=== PATIENT | female | born 1985 | race Caucasian/White ===

== ENCOUNTER → 2017-11-22 12:51 | Outpatient (CLI) | payer BC, SELFPAY ==
--- NOTE | 2017-11-22 12:56 | US_ITS ---
US transvaginal HISTORY: Pelvic pain with heavy cycles ITS.REASON: Severe Pain ORDERING PHYSICIAN: Jed Graham MD PATIENT AGE: 32 years COMPARISON: None FINDINGS: UTERUS: The uterus measures 8 x 3.3 x 3.9 cm. Combined endometrial thickness is 5 mm. No uterine mass apparent. The left ovary is 3.8 x 1.9 cm containing small follicles. Right ovary is 3 x 2.37 m also contains small follicles. No dominant cyst. No cul-de-sac fluid apparent. IMPRESSION: Small bilateral ovarian follicles otherwise negative pelvic ultrasound.
== END ==
PROVIDERS: Family Provider Internal Medicine Adolescent Medicine; PCP Internal Medicine Adolescent Medicine; Visit Provider Nurse Practitioner Obstetrics & Gynecology
DX: N93.9 Abnormal uterine and vaginal bleeding, unspecified (principal); N94.4 Primary dysmenorrhea; R10.9 Unspecified abdominal pain
CPT/HCPCS: 76830

== ENCOUNTER 2018-02-11 07:06 | Observation (INO) ==
[2018-02-11 07:49] LABS: Basophils % 0.5 % (0.1-2.0); Eosinophils # 0.4 K/mm3 (0.0-0.4); Eosinophils % 9.8 % (0.1-12.0); Hematocrit 48.4 % (37.0-47.0); Hemoglobin 15.9 g/dL (12.2-16.2); Lymphocytes % 21.2 K/mm3 (10-50); Mean Corpuscular HGB Conc 32.9 g/dL (31.8-35.4); Mean Corpuscular Hemoglobin 28.2 pg (27.0-31.2); Mean Corpuscular Volume 85.8 fl (81-99); Mean Platelet Volume 8.9 fl (7.4-10.4); Monocytes # 0.4 K/mm3 (0.1-1.0); Monocytes % 8.5 % (1.7-9.3); Neutrophils # 2.7 K/mm3 (1.8-7.8); Platelet Count 199 K/mm3 (142-424); Red Blood Count 5.64 M/mm3 (4.20-5.40); Red Cell Distribution Width 12.6 % (11.5-17.5); White Blood Count 4.5 K/mm3 (4.8-10.8)
[2018-02-11 07:55] LABS: Anion Gap 13.3 mEq/L (5-15); Calcium 9.4 mg/dL (8.5-10.1); Potassium 3.3 mmoL/L (3.5-5.1)
--- NOTE | 2018-02-11 07:56 | Progress Note ---
[facility] Anesthesia Checklist - Patient Identification Patient Identification: Arm Band - Structural Data Admitted From: Home [facility] Operative Procedure(s) Verified: Yes Verified Documents: Surgical Consent, History and Physical - NPO Status Verified Time NPO: 00:00 - Additional verifications Anesthesia Reactions: No - Airway Assessment C-Spine Mobility Assessed: Yes (mp1) TMJ Mobility Assessed: Yes Dentition: Good Dentition - Neurological Assessment Level of Consciousness: Awake, Alert - Anesthesia Plan Anesthesia Risk discussed: Yes Anesthesia Plan: Verified ASA Class: II Anesthesia Type: General [facility] Anesthesia HX I have reviewed the patient's past medical history: Yes Medical History: Reports:: Asthma, Kidney Stones Denies:: Cancer, Diabetes Mellitus Type 1, Diabetes Mellitus Type 2, Internal Pacemaker, MRSA, Seizures Other Medical History: Reports: Arthritis. Denies: Blood Transfusion Reaction Laterality Cases: Bilateral: Tonsillectomy Other Surgeries: Yes: , Sinus Surgery, Other. No: Pacemaker Amputation: No Fractures: No *Family Hx:: Diabetes, Heart Attack, Coronary Artery Disease, Hypertension, Cancer, Hyperlipidemia, Asthma, Stroke
--- NOTE | 2018-02-11 10:45 | Operative Note ---
Date of procedure: 02/11/18 Pre-op Diagnosis:: Dysmenorrhea, dyspareunia, menorrhagia Post-op Diagnosis:: Dyspareunia, dysmenorrhea, menorrhagia, endometriosis Procedure performed:: Laparoscopically assisted vaginal hysterectomy and bilateral salpingectomy Surgeon:: Jed Graham MD Knot Tier(s):: Dr. Chang SAMPLER RADIOACTIVE WASTE:: Lloyd Herman Anesthesia: GETA Estimated blood loss (mL): 200 Clinical Note:: She is a 32-year-old 3 para 3 lady who complains of severe pain with her periods as well as dyspareunia and menorrhagia. She says she has been unable have intercourse as result of the severe pain. Ultrasound was essentially normal. After having discussed the risks and benefits she elected to have a laparoscopically assisted vaginal hysterotomy and bilateral salpingectomy. Operative findings:: She had a normal-appearing anteverted uterus. There was a 2 cm follicle on the right ovary. Tubes appeared normal. There was an area of powder burn endometriosis in the left side slightly above the left uterosacral ligament that was approximately 1 mm in size. The appendix is seen and appeared normal. The rest the pelvis appear normal. Operative note:: She was taken to the operating room where general anesthesia was found be adequate. She was prepped and draped in the normal sterile fashion in the semi- lithotomy position. A weighted speculum was placed in the vagina and the anterior lip of the cervix was grasped with a tenaculum. I inserted an Mela retractor into the cervical os. I then changed gloves and injected 10 mL of 0.5 percent ropivacaine around the umbilicus. I made a small incision within the umbilicus and inserted a Veress needle into the abdominal cavity. The abdominal cavity was then insufflated with carbon dioxide gas to a pressure of 20 millimeters of mercury. I then inserted an 11 mm trocar under direct vision. I injected through and through the pubic hairline, made a small incision here and inserted a 5 mm trocar under direct vision. I identified the inferior epigastric arteries on the LEFT side and went lateral to these and injected through and through. I made a small incision and inserted an 11 mm trocar under direct vision. This was similarly performed on the patient's RIGHT side. The LEFT round ligament was then grasped and cut with Harmonic scalpel. This was followed by the LEFT tube. I then cut through and cauterized the LEFT utero- ovarian ligament. I opened up the peritoneum anteriorly to the midline. I then took down the posterior aspect of the broad ligament to the level of the uterosacral ligament on the LEFT side. The uterine arteries on the LEFT side were then skeletonized. Hemoclips were placed across the uterine arteries and then the uterine arteries were cauterized with Harmonic scalpel adjacent to the cervix. We then further took down the bladder anteriorly. I grasped the RIGHT round ligament and cut through this with Harmonic scalpel. This was followed by the RIGHT tube. I then cauterized and cut the RIGHT utero- ovarian ligament with Harmonic scalpel. I then freed up the peritoneum anteriorly on the RIGHT side joining up with the midline. I then took down the posterior aspect of the broad ligament to the level of the uterosacral ligament. The uterine arteries on the RIGHT side were skeletonized. Hemoclips were applied to the uterine arteries. I then cauterized and cut the uterine arteries with Harmonic scalpel adjacent to the cervix. I freed up the bladder pillars on the RIGHT side and the LEFT side. I freed up the bladder anteriorly along the cervix. I After assuring hemostasis and rinsing the pelvis well we then turned our attention to the fallopian tubes. The RIGHT fallopian tube was grasped at its distal end and cut along the meso salpinx. The tube was removed through the 11 mm trocar site. This was similarly performed on the patient's LEFT side. After assuring hemostasis we then turned our attention to the vaginal portion the surgery. The patient was placed in the lithotomy position. A weighted spectrum was placed in vagina. The anterior and posterior lip of the cervix were grasped with Reardon tenacula. I injected 20 mL of 1 percent Xylocaine with epinephrine circumferentially about the cervix. I then circumscribed the cervix with knife. I then opened up into the posterior cul-de-sac with Pleitez scissors. The left uterosacral ligament was then clamped cut and suture ligated and tagged. This was followed by the cardinal ligament on the left side which was clamped cut and suture ligated. I then grasped the right uterosacral ligament which was clamped cut and suture ligated. This was also tagged. This is followed by the right cardinal ligament which was clamped cut and suture ligated. We then grasped the anterior vaginal mucosa and using both sharp and blunt dissection dissected into the anterior aspect of the peritoneum. A Yan retractor was then placed in this defect. I then clamped across the remaining tissue bilaterally and cut this away. The uterus was then retrieved through the vagina. These pedicles were then clamped cut and suture ligated. I then was able to grasp the corner of the vagina and using 0 Vicryl suture in a locked fashion I closed the vagina from anterior to posterior from LEFT to RIGHT. A Lazcano suture was then placed first using 0 Vicryl suture going through the posterior vagina and peritoneum. We then took a bite of the left uterosacral ligament and plicated across posterior peritoneum. This is followed by the right uterosacral ligament and then the suture was passed through the peritoneum and vagina. This was left to be tied at the end. I then placed a pursestring suture using 2-0 PDS starting anteriorly and picking up the peritoneum. The vaginal mucosa was then closed in running 0 Vicryl suture in a locked fashion from left to right and from anterior to posterior. The Lazcano suture was then tied. A Saldivar catheter was then placed in the bladder. Clear urine was seen to flow. We then turned our attention to the laparoscopic portion of the surgery once again. She was once of again placed in the semi-lithotomy position. I changed gloves. The abdominal cavity was insufflated with carbon oxide gas to a pressure of 20 mmHg. The pelvis was rinsed and once again hemostasis was assured. I let the gas into the abdomen to once again assuring hemostasis with decreased intra-abdominal pressure. Once again hemostasis was assured. The secondary trochars were then removed under direct vision. The sites were hemostatic. The gas was let out of the abdomen and the primary trocar and camera were removed together. No bowel seen to follow. The 11 mm trocar sites were closed deeply with 2-0 Vicryl suture followed by running subcuticular 4-0 Monocryl suture. The 5 mm trocar site was closed with subcuticular 4-0 Monocryl suture. Sterile dressings were applied. The patient tolerated the procedure well and was taken to the recovery room in excellent condition. All sponge instrument and needle counts were correct. Estimate a blood loss was approximately 200 mL. Condition: stable Disposition: PACU Specimens:: Uterus and fallopian tubes Complications:: None
--- NOTE | 2018-02-11 10:52 | Progress Note ---
[facility] Anesthesia Record Part I Intake, IV Amount: 1,000 Estimated blood loss (mL): 200 Urine output (mL): 50 Blood Products used (#): none Blood Pressure: 135/80 SaO2: 100 Pulse Rate: 68 Respiratory Rate: 18 Temperature: 97.4 F Patient is:: Awake, Stable Stable to PACU at:: 10:48
--- NOTE | 2018-02-11 10:53 | Progress Note ---
[facility] Anesthesia Record Part II Discharge Time: 11:18 Destination: Obstetric Gynecology Dept PACU nurse assessment reviewed?: Yes Patient Condition:: Good Anesthesia Complications:: None
--- NOTE | 2018-02-11 14:51 | Pharmacy Consult Notes ---
[facility] Pharmacy VTE Monitoring - Patient Demographics Admission date: 02/11/18 Report Date: 02/11/18 Time: 14:51 Allergies/Adverse Reactions: Patient Allergies codeine Allergy (Intermediate, Verified 02/11/18 07:22) Rash morphine Allergy (Intermediate, Verified 02/11/18 07:22) Rash penicillin V Allergy (Intermediate, Verified 02/11/18 07:22) Rash Penicillins Allergy (Intermediate, Verified 02/11/18 07:22) Rash Height: 1.68 m Weight: 63.503 kg - VTE Risk Labs: VTE Related Lab Results Hgb 15.9 g/dL (12.2-16.2) 02/11/18 07:41 Hct 48.4 % (37.0-47.0) H 02/11/18 07:41 Plt Count 199 K/mm3 (142-424) 02/11/18 07:41 BUN 7 mg/dL (7-18) 02/11/18 07:41 Creatinine 0.81 mg/dL (0.55-1.02) 02/11/18 07:41 Estimated Creat Clear 98 mL/min (0-300) 02/11/18 07:41 Clinical Trial Participant: No - Prophylaxis VTE Prophylaxis Ordered?: Yes Types of VTE Prophylaxis: IPCS Thigh High (POSTOP) Location of Applied Device: Bilateral Lower Extremeties
[2018-02-11 15:53] LABS: Hematocrit 39.8 % (37.0-47.0)
[2018-02-11 16:09] LABS: Hemoglobin 13.3 g/dL (12.2-16.2)
[2018-02-12 05:59] LABS: Basophils % 0.3 % (0.1-2.0); Eosinophils # 0.2 K/mm3 (0.0-0.4); Hematocrit 39.3 % (37.0-47.0); Hemoglobin 12.5 g/dL (12.2-16.2); Lymphocytes # 1.2 K/mm3 (0.7-4.5); Lymphocytes % 23.4 K/mm3 (10-50); Mean Corpuscular HGB Conc 31.7 g/dL (31.8-35.4); Mean Corpuscular Hemoglobin 27.8 pg (27.0-31.2); Mean Corpuscular Volume 87.5 fl (81-99); Mean Platelet Volume 8.8 fl (7.4-10.4); Monocytes # 0.5 K/mm3 (0.1-1.0); Monocytes % 9.8 % (1.7-9.3); Neutrophils # 3.2 K/mm3 (1.8-7.8); Neutrophils % 62.6 % (37.0-80.0); Platelet Count 206 K/mm3 (142-424); Red Blood Count 4.49 M/mm3 (4.20-5.40); Red Cell Distribution Width 12.7 % (11.5-17.5); White Blood Count 5.2 K/mm3 (4.8-10.8)
[2018-02-12 06:06] LABS: Anion Gap 12.2 mEq/L (5-15); Potassium 3.2 mmoL/L (3.5-5.1)
--- NOTE | 2018-02-12 08:21 | Discharge Summary ---
General - General Admission date:: 02/11/18 Discharge date: 02/12/18 HPI HPI: She is a 32-year-old lady who complains of severe dysmenorrhea as well as dyspareunia. She has chronic pelvic pain. She has menorrhagia. After having discussed the risks and benefits we elected to perform a laparoscopically assisted vaginal hysterectomy and bilateral salpingectomy. Hospital Course Hospital Course: On February 11, 2018 she underwent a laparoscopically assisted vaginal hysterectomy and bilateral salpingectomy. She has done well postoperatively and has remained afebrile throughout her hospitalization. She is eating and drinking and ambulating. She does have some diarrhea that she had before admission and we did send off a culture for the diarrhea. She denies shortness of breath, chest pain or calf tenderness. Her incisions are clean and dry. On examination her lungs are clear her heart sounds are normal. He has normal bowel sounds. We will be discharging her home this morning to follow-up with me in 2 weeks time. She was given a prescription for Percocet, / #30. She was given the usual instructions with respect to limiting her activity, driving and sexual activity. Objective Vital signs: Temp Pulse Resp BP Pulse Ox 98.2 F 71 18 107/68 100 02/12/18 08:00 02/12/18 08:00 02/12/18 08:00 02/12/18 08:00 02/12/18 08:00 no acute distress - *Routine HEENT Exam Head: Present: normocephalic - *Routine Respiratory Exam Comments: She has good air entry bilaterally and no accessory muscle use. - *Routine Cardiovascular Exam Present: RRR - *Routine Abdominal Exam Present: soft Comments: Her incisions are clean and dry. Results Labs on day of discharge: Labs from last 24 hours 02/12/18 02/12/18 02/11/18 05:30 05:30 Unknown WBC 5.2 RBC 4.49 Hgb 12.5 Hct 39.3 MCV 87.5 MCH 27.8 MCHC 31.7 L RDW 12.7 Plt Count 206 MPV 8.8 Neut % (Auto) 62.6 Lymph % (Auto) 23.4 [place] % (Auto) 9.8 H Eos % (Auto) 4.0 Baso % (Auto) 0.3 Neut # (Auto) 3.2 Lymph # (Auto) 1.2 [place] # (Auto) 0.5 Eos # (Auto) 0.2 Baso # (Auto) 0.0 Sodium 142 Potassium 3.2 L Chloride 106 Carbon Dioxide 27 Anion Gap 12.2 BUN 5 L D Creatinine 0.70 Estimated Creat Clear 114 Estimated GFR 96 Est GFR ( Amer) 116 Glucose 91 Urine Color Yellow Urine Appearance Clear Urine pH 6.0 Ur Specific [place] >= 1.030 Urine Protein 1+ Urine Glucose (UA) Negative Urine Ketones Negative Urine Blood 2+ Urine Nitrate Negative Urine Bilirubin Negative Urine Urobilinogen 0.2 Ur Leukocyte Esterase Negative Urine RBC 5-10 Urine WBC 5-10 Ur Squamous Epith Cells 20-50 Urine Bacteria 4+ A 02/11/18 15:45 WBC RBC Hgb 13.3 D Hct 39.8 MCV MCH MCHC RDW Plt Count MPV Neut % (Auto) Lymph % (Auto) [place] % (Auto) Eos % (Auto) Baso % (Auto) Neut # (Auto) Lymph # (Auto) [place] # (Auto) Eos # (Auto) Baso # (Auto) Sodium Potassium Chloride Carbon Dioxide Anion Gap BUN Creatinine Estimated Creat Clear Estimated GFR Est GFR ( Amer) Glucose Urine Color Urine Appearance Urine pH Ur Specific [place] Urine Protein Urine Glucose (UA) Urine Ketones Urine Blood Urine Nitrate Urine Bilirubin Urine Urobilinogen Ur Leukocyte Esterase Urine RBC Urine WBC Ur Squamous Epith Cells Urine Bacteria DS: Diagnosis - Discharge Diagnosis (1) Menorrhagia Status: Acute (2) Dysmenorrhea Status: Acute (3) Endometriosis determined by laparoscopy Status: Acute (4) Dyspareunia Status: Acute Discharge Plan - Patient Discharge Instructions DIET: continue same diet - Follow up Plan Disposition: Home, Self-Skilled Nursing Medications: Home Medications Medication Instructions Recorded Confirmed Type montelukast 10 mg tablet 10 mg PO HS 11/21/17 02/11/18 History Albuterol Sulfate [Albuterol HFA 2 inh INHALATION QID 02/08/18 02/11/18 History Inhaler] Prescriptions/Medication Reconciliation: Continue montelukast 10 mg tablet 10 mg PO HS Albuterol Sulfate [Albuterol HFA Inhaler] 2 inh INHALATION QID
[2018-02-12 10:20] LABS: Calcium 8.5 mg/dL (8.5-10.1)
== END 2018-02-12 09:30 | disposition home or self-care (01) ==
LOC: OB 07:06 → OR 07:06
PROVIDERS: ADMIT Nurse Practitioner Obstetrics & Gynecology; ATTEND Nurse Practitioner Obstetrics & Gynecology

== ENCOUNTER → 2018-07-23 19:33 | Outpatient (CLI) | payer BC, SELFPAY ==
[2018-07-23 22:26] LABS: Amphetamine/Metha Screen,Urine Negative ng/mL (<1000); Barbiturates Screen,Urine Negative ng/mL (<200); Benzodiazepines Screen,Urine Negative ng/mL (<200); Cannabinoid Screen,Urine Negative ng/mL (<50); Cocaine Screen,Urine Negative ng/mL (<300); Methadone Screen,Urine Negative ng/mL (<300); Opiate Screen,Urine Negative ng/mL (<300); Phencyclidine Screen,Urine Negative ng/mL (<25)
[2018-07-29 06:07] LABS: Alprazolam Negative (Cutoff=100); Benzodiazepines Negative ng/mL (Cutoff=100); Clonazepam Negative (Cutoff=100); Flurazepam Negative (Cutoff=100); Lorazepam Negative (Cutoff=100); Midazolam Negative (Cutoff=100); Temazepam Negative (Cutoff=100); Triazolam Negative (Cutoff=100)
== END ==
PROVIDERS: Visit Provider Nurse Practitioner Family
DX: Z79.899 Other long term (current) drug therapy (principal)
CPT/HCPCS: 80305; 80346

== ENCOUNTER → 2018-09-12 14:38 | Outpatient (CLI) | payer BC, SELFPAY ==
[2018-09-12 16:34] LABS: Amphetamine/Metha Screen,Urine Negative ng/mL (<1000); Barbiturates Screen,Urine Negative ng/mL (<200); Benzodiazepines Screen,Urine Negative ng/mL (<200); Cannabinoid Screen,Urine Negative ng/mL (<50); Cocaine Screen,Urine Negative ng/mL (<300); Methadone Screen,Urine Negative ng/mL (<300); Opiate Screen,Urine Negative ng/mL (<300); Phencyclidine Screen,Urine Negative ng/mL (<25)
== END ==
PROVIDERS: Visit Provider Nurse Practitioner Family
DX: Z79.899 Other long term (current) drug therapy (principal)
CPT/HCPCS: 80305

== ENCOUNTER → 2018-10-28 07:16 | Outpatient (CLI) | payer BC, SELFPAY ==
--- NOTE | 2018-10-28 07:20 | US_ITS ---
US transvaginal HISTORY: ITS.REASON: acute pelvic pain ORDERING PHYSICIAN: Almita Ivey MD PATIENT AGE: 32 years Comparison: None FINDINGS: There has been a prior hysterectomy. The vaginal cuff has an unremarkable appearance. There is a small amount of free fluid in the pelvis. The left ovary measures 3 x 2 cm with small follicles noted. The right ovary is 3 x 2 symmetry is also with small follicles. IMPRESSION: Prior hysterectomy. Small amount of pelvic fluid otherwise negative pelvic ultrasound
== END ==
PROVIDERS: PCP Emergency Medicine; Visit Provider Obstetrics & Gynecology
DX: R10.2 Pelvic and perineal pain (principal)
CPT/HCPCS: 76830

== ENCOUNTER → 2018-12-11 09:47 | Outpatient (CLI) | payer BC, SELFPAY ==
[2018-12-11 10:23] LABS: Basophils % 0.4 % (0.1-2.0); Eosinophils # 0.2 K/mm3 (0.0-0.4); Eosinophils % 2.5 % (0.1-12.0); Hematocrit 39.7 % (37.0-47.0); Hemoglobin 13.3 g/dL (12.2-16.2); Lymphocytes # 1.7 K/mm3 (0.7-4.5); Lymphocytes % 26.7 % (10-50); Mean Corpuscular HGB Conc 33.5 g/dL (31.8-35.4); Mean Corpuscular Hemoglobin 29.3 pg (27.0-31.2); Mean Corpuscular Volume 87.5 fl (81-99); Mean Platelet Volume 8.4 fl (7.4-10.4); Monocytes # 0.3 K/mm3 (0.1-1.0); Monocytes % 4.7 % (1.7-9.3); Neutrophils # 4.1 K/mm3 (1.8-7.8); Neutrophils % 65.6 % (37.0-80.0); Platelet Count 232 K/mm3 (142-424); Red Blood Count 4.53 M/mm3 (4.20-5.40); Red Cell Distribution Width 13.3 % (11.5-17.5); White Blood Count 6.2 K/mm3 (4.8-10.8)
[2018-12-11 10:50] LABS: Anion Gap 12.9 mEq/L (5-15); Blood Urea Nitrogen 13 mg/dL (7-18); Calcium 9.3 mg/dL (8.5-10.1); Carbon Dioxide 28 mmol/L (21.0-32.0); Chloride 103 mmol/L (98-107); Creatinine,Serum 0.88 mg/dL (0.55-1.02); Estimated Glomerular Filt Rate 73 ml/min (>60); GFR (African American) 88 ML/MIN (>60); Glucose 75 mg/dL (74-106); Potassium 3.9 mmoL/L (3.5-5.1); Sodium 140 mmol/L (136-145)
== END ==
PROVIDERS: PCP Emergency Medicine; Visit Provider Nurse Practitioner Obstetrics & Gynecology
DX: Z01.818 Encounter for other preprocedural examination (principal)
CPT/HCPCS: 36415; 80048; 85025

== ENCOUNTER → 2019-02-21 12:37 | Outpatient (CLI) | payer BC, SELFPAY ==
[2019-02-21 14:40] LABS: Amphetamine/Metha Screen,Urine Negative ng/mL (<1000); Barbiturates Screen,Urine Negative ng/mL (<200); Benzodiazepines Screen,Urine Negative ng/mL (<200); Cannabinoid Screen,Urine Negative ng/mL (<50); Cocaine Screen,Urine Negative ng/mL (<300); Methadone Screen,Urine Negative ng/mL (<300); Opiate Screen,Urine Positive ng/mL (<300); Phencyclidine Screen,Urine Negative ng/mL (<25)
[2019-02-27 11:14] LABS: Alprazolam Negative (Cutoff=100); Benzodiazepines Positive ng/mL (Cutoff=100); Clonazepam Positive (.); Flurazepam Negative (Cutoff=100); Lorazepam Negative (Cutoff=100); Midazolam Negative (Cutoff=100); Temazepam Negative (Cutoff=100); Triazolam Negative (Cutoff=100)
[2019-02-27 19:10] LABS: Clonazepam Confirm 224 ng/mL (Cutoff=100); Opiates Negative ng/mL (Cutoff=100)
== END ==
PROVIDERS: Visit Provider Nurse Practitioner Family
DX: Z79.899 Other long term (current) drug therapy (principal); F41.9 Anxiety disorder, unspecified
CPT/HCPCS: 80305; 80346; 80361; G0480

== ENCOUNTER → 2019-04-25 10:08 | Outpatient (CLI) | payer BC, SELFPAY ==
--- NOTE | 2019-04-25 10:10 | US_ITS ---
PROCEDURE: US TRANSVAGINAL CLINICAL INDICATION: US T/V- Pelvic Pain, R/O Cyst, Endometreosis Pelvic pain COMPARISON: TRANVAG US transvaginal from 10/28/2018 TECHNIQUE: FINDINGS: There has been a prior hysterectomy and bilateral oophorectomy. The vaginal cuff has an unremarkable appearance. No pelvic mass or cul-de-sac fluid evident. IMPRESSION: Status post hysterectomy and oophorectomy. Otherwise negative Dictated by: Jean-Paul Argueta MD 04/25/2019 17:53 Signed by: <Electronically signed by Jean-Paul Argueta MD in [place]> 04/25/2019 17:53
== END ==
PROVIDERS: PCP Emergency Medicine; Visit Provider Nurse Practitioner Obstetrics & Gynecology
DX: R10.2 Pelvic and perineal pain (principal)
CPT/HCPCS: 76830